=== PATIENT | male | born 1990 | race Caucasian/White ===

== ENCOUNTER 2017-08-08 20:31 | Emergency (ER) | payer OTHER ==
[~2017-08-08 20:31] MED LIST: Sodium Chloride 0.9% 1,000 ML IV ONE
[2017-08-08] MEDS ORDERED: Sodium Chloride 0.45% 1,000 ML IV ONE ×2 (23:09)
[2017-08-08] MEDS ORDERED: Ondansetron 4 MG/2 ML SDV IV ONE (23:15)
[2017-08-09 07:23] LABS: ANION GAP 9.9; CHLORIDE,CL 99 mmol/L (101-111); SODIUM,NA 135 mmol/L (135-145)
== END 2017-08-09 01:20 | disposition home or self-care (01) ==
LOC: DL.ED 20:31
DX: E86.0 Dehydration (principal); Z87.19 Personal history of other diseases of the digestive system; Z72.4 Inappropriate diet and eating habits
CPT/HCPCS: 36415; 80053; 85025; 87804; 96361; 96374; 99284; J2405; J7030